=== PATIENT | male | born 2000 | race African-American/Black ===

== ENCOUNTER 2022-12-17 14:19 | Emergency (ER) | payer OTHER ==
[2022-12-17 14:30] VITALS: BP 112/70; PULSE 67; RESP 16; TEMP 98.3; BMI 22.0
[2022-12-17] MEDS ORDERED: SODIUM CHLORIDE 0.9% 500 ML INFUS.BAG IV ONE (15:05)
[2022-12-17] MEDS ORDERED: METOCLOPRAMIDE HCL INJECTION 10 MG/2 ML VIAL IVPUSH ONE (15:05)
[2022-12-17] MEDS ORDERED: ACETAMINOPHEN 1000 MG/100 ML BAG IVPB ONE (15:05)
[2022-12-17] MEDS ORDERED: METOCLOPRAMIDE HCL INJECTION 10 MG/2 ML VIAL ONE (16:00)
[2022-12-17] MEDS ORDERED: ACETAMINOPHEN INJECTION 100 ML IVPB ONE (16:00)
[2022-12-17] MEDS ORDERED: IBUPROFEN 400 MG TABLET (FP) PO ONE ×2 (17:54→17:57)
== END 2022-12-17 18:39 | disposition home or self-care (01) ==
LOC: JER 14:19
DX: R51.9 Headache, unspecified (principal); R11.2 Nausea with vomiting, unspecified
CPT/HCPCS: 70450-TC; 99284-25